=== PATIENT | male | born 1950 | race American Indian/Alaskan Native ===

== ENCOUNTER 2016-09-28 14:22 | Emergency (ER) | payer MEDICARE, OTHER ==
[2016-09-28 14:46] VITALS: BP 134/80; PULSE 64; RESP 20; TEMP 97.4; O2SAT 100
--- NOTE | 2016-09-28 15:19 | C.PDOC ---
History Of Present Illness 66 y/o male referred to ED from outpatient preop testing to have labs drawn after multiple failed attempts. Pt with poor peripheral veins. No complaints at this time. Time Seen by Provider: 09/28/16 14:56 Chief Complaint (Nursing): Medical Clearance History Per: Patient History/Exam Limitations: no limitations Severity: None Pain Scale Rating Of: 0 Recent travel outside of the [place]: No Past Medical History Reviewed: Historical Data, Nursing Documentation, Vital Signs Vital Signs: Last Vital Signs Temp 97.4 F L 09/28/16 14:46 Pulse 64 09/28/16 14:46 Resp 20 09/28/16 14:46 BP 134/80 09/28/16 14:46 Pulse Ox 100 09/28/16 15:19 - Medical History PMH: HTN Family History: States: Unknown Family Hx - Social History Hx Alcohol Use: No Hx Substance Use: No - Immunization History Hx Tetanus Toxoid Vaccination: No Hx Influenza Vaccination: No Review Of Systems Except As Marked, All Systems Reviewed And Found Negative. Physical Exam - Physical Exam Appears: Non-toxic, No Acute Distress Skin: Warm, Dry, No Rash Head: Atraumatic, Normacephalic Chest: Symmetrical Cardiovascular: Rhythm Regular Respiratory: Normal Breath Sounds, No Rales, No Rhonchi, No Wheezing Extremity: Normal ROM, Other (wrist brace to left wrist. Track borjas to bilateral forearms (denies drug abuse past 20 years)) Extremity: Bilateral: Atraumatic Neurological/Psych: Oriented x3, Normal Speech ED Course And Treatment - Laboratory Results Result Diagrams: 09/28/16 15:47 09/28/16 15:47 O2 Sat by Pulse Oximetry: 100 (room air) Pulse Ox Interpretation: Normal Medical Decision Making Medical Decision Making: referred from outpatient pre-op lab testing as unable to draw pre-op labs after multiple failed attempts. h/o IVDA, poor veins. Drawn and sent and NOT followed in ED PMD to f/u and MRI per PMD Disposition Doctor Will See Patient In The: Office Counseled Patient/Family Regarding: Studies Performed, Diagnosis - Disposition Referrals: [facility] [Outside] Marylou Shane MD [Non-Staff] - Disposition: HOME/ ROUTINE Disposition Time: 15:19 Condition: GOOD Additional Instructions: your pre-op labs were drawn in the ED today Follow-up with your PMD for further eval as needed Forms: General Discharge Instructions - Clinical Impression Clinical Impression: Medical assessment - Scribe Statement The provider has reviewed the documentation as recorded by the Marthaibvelasquez Arteaga Provider Attestation: All medical record entries made by the Marthaibe were at my direction and personally dictated by me. I have reviewed the chart and agree that the record accurately reflects my personal performance of the history, physical exam, medical decision making, and the department course for this patient. I have also personally directed, reviewed, and agree with the discharge instructions and disposition. PROCEDURES - Phlebotomy Reason for Blood Draw by MD: RN/lab unable, MD to place line Obtained Bloods via: Other (right radial artery stick) Additional comments: Post procedure: normal sensation and motor intact right wrist
[2016-09-28 15:53] LABS: BASO # 0.1 K/uL (0.0-0.2); EOS # 0.1 K/uL (0.0-0.7); HEMATOCRIT 41.3 % (35.0-51.0); LYMPH # 4.2 K/uL (1.0-4.3); LYMPH % 62.7 % (20.0-40.0); MEAN CELL VOLUME 83.4 fL (80.0-94.0); MEAN CORPUSCULAR HGB CONC 33.6 g/dL (33.0-37.0); MONO # 0.5 K/uL (0.0-0.8); MONO % 8.2 % (0.0-10.0); NRBC % 0.1 % (0.0-2.0); RED CELL DISTRIBUTION WIDTH 15.5 % (11.5-14.5); WHITE BLOOD COUNT 6.6 K/uL (4.8-10.8)
[2016-09-28 16:11] LABS: CHLORIDE 102 mmol/L (98-107); POTASSIUM 3.7 mmol/L (3.6-5.2); SODIUM 137 mmol/L (132-148)
[2016-09-28 16:13] LABS: ALB/GLOB RATIO 0.9 (1.0-2.1); AST/SGOT 33 U/L (17-59); BILIRUBIN,TOTAL 0.7 mg/dL (0.2-1.3); CARBON DIOXIDE 25 mmol/L (22-30); GFR AFRICAN-AMERICAN > 60; TOTAL PROTEIN 7.2 g/dL (6.3-8.3)
[2016-09-28 16:14] LABS: ALKALINE PHOSPHATASE 50 U/L (38-126); ALT/SGPT 25 U/L (21-72); BLOOD UREA NITROGEN 10 mg/dL (9-20); CALCIUM 8.6 mg/dl (8.6-10.4); GLUCOSE,RANDOM 87 mg/dL (75-110)
== END 2016-09-28 16:07 | disposition home or self-care (01) ==
LOC: C.ER 14:22
DX: Z00.8 Encounter for other general examination (principal)

== ENCOUNTER 2017-06-13 12:02 | Emergency (ER) | payer MEDICARE, OTHER ==
[2017-06-13 12:49] VITALS: RESP 20
[2017-06-13] MEDS ORDERED: Bacitracin 500 Units/gm Oint Foilpak UD TOP ONE (13:33)
[2017-06-13] MEDS ORDERED: Bacitracin 500 Units/gm Oint Foilpak UD ONE ×2 (13:58→14:34)
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
[2017-06-13 15:40] VITALS: BP 146/82; PULSE 93; TEMP 97.5; O2SAT 100
== END 2017-06-13 15:20 | disposition home or self-care (01) ==
LOC: C.ER 12:02
DX: T20.26XA Burn of second degree of forehead and cheek, initial encounter (principal); T20.23XA Burn of second degree of chin, initial encounter; X13.1XXA Other contact with steam and other hot vapors, initial encounter; Y93.G3 Activity, cooking and baking; Y92.000 Kitchen of unspecified non-institutional (private) residence as the place of occurrence of the external cause; Z23 Encounter for immunization

== ENCOUNTER 2018-06-20 12:14 | Outpatient (CLI) | payer MEDICARE, OTHER | END 2018-06-20 12:15 | disposition home or self-care (01) | LOC: C.RADIC 12:14 | DX: M19.90 Unspecified osteoarthritis, unspecified site (principal) ==